=== PATIENT | female | born 1985 | race Asian ===

== ENCOUNTER 2017-11-09 01:00 | Inpatient (IN) | payer SELFPAY ==
[~2017-11-09] VITALS: Ht 174 cm; Wt 88.9 kg
[2017-11-09] MEDS ORDERED: METHYLERGONOVINE 0.2 MG/ML AMP IM PRN (01:50)
[2017-11-09] MEDS ORDERED: OXYTOCIN 10 UNITS/ML VIAL IM SCH (01:50)
[2017-11-09] MEDS ORDERED: CARBOPROST 250 MCG/ML AMP IM PRN (01:50)
[2017-11-09] MEDS ORDERED: PREN1SGL25 PO (01:54)
[2017-11-09 01:57] VITALS: BP 122/78
[2017-11-09 02:14] LABS: APPEARANCE,URINE SL CLOUDY (CLEAR); BILIRUBIN,URINE NEGATIVE (NEGATIVE); BLOOD, URINE 3+ (NEGATIVE); COLOR,URINE YELLOW (YELLOW); LEUKOCYTE ESTERASE ,URINE 2+ (NEGATIVE); NITRITE, URINE NEGATIVE (NEGATIVE); UGLUCOSE NEGATIVE (NEGATIVE)
[2017-11-09 02:22] LABS: ANION GAP 13.4 (8-16); CARBON DIOXIDE 24.3 mmol/L (21-32); CREATININE 0.7 mg/dL (0.6-1.3); POTASSIUM 3.7 mmol/L (3.5-5.1)
[2017-11-09 02:25] LABS: RBC,URINE 3-10 (FEW) /HPF (0-5)
[2017-11-09 02:27] LABS: ALBUMIN 2.5 g/dL (3.4-5.0); TOTAL BILIRUBIN 0.2 mg/dL (0.0-1.0)
[2017-11-09] MEDS ORDERED: OXYTOCIN 20 UNITS in LACTATED RINGERS 1,000 ML IV PRN (02:45)
[2017-11-09] MEDS ORDERED: OXYTOCIN 20 UNITS/LR PREMIX 1,000 ML IV ONE (02:53)
[2017-11-09 03:18] LABS: BASOPHILS # (AUTO) 0.1 K/uL (0.00-0.22); BASOPHILS % (AUTO) 0.7 % (0.0-2.0); EOSINOPHILS # (AUTO) 0.1 K/uL (0-0.4); EOSINOPHILS % (AUTO) 0.9 % (0.0-4.0); HEMATOCRIT 39.4 % (36-48); HEMOGLOBIN 12.9 g/dL (12.0-16.0); LYMPHOCYTES # (AUTO) 1.5 K/uL (2.5-16.5); LYMPHOCYTES % (AUTO) 20.3 % (20.5-51.1); MEAN CORPUSCULAR HEMOGLOBIN 28 pg (27-31); MEAN CORPUSCULAR HGB CONC 33 g/dL (33-37); MEAN CORPUSCULAR VOLUME 86.7 fL (80-94); MONOCYTES # (AUTO) 0.5 K/uL (0.8-1.0); MONOCYTES % (AUTO) 6.6 % (1.7-9.3); NEUTROPHILS # (AUTO) 5.2 K/uL (1.8-7.7); NEUTROPHILS % (AUTO) 71.5 % (42.2-75.2); PLATELET COUNT (AUTO) 156 K/uL (140-450); RED BLOOD CELL COUNT(AUTO) 4.54 MIL/uL (4.20-5.40); RED CELL DISTRIBUTION WIDTH 14.3 % (11.6-13.7); WHITE BLOOD COUNT (AUTO) 7.2 K/uL (4.8-10.8)
[2017-11-09] MEDS: LACTATED RINGERS 1,000 ML IV SCH ×3 (05:00→09:36)
[2017-11-09] MEDS ORDERED: BUPIVACAINE 0.125%/NS PREMIX 250 ML ONE (05:27)
--- NOTE | 2017-11-09 09:17 | NUR ---
PATIENT HAS BEEN SCREENED AND CATEGORIZED LOW NUTRITION RISK. PATIENT WILL BE SEEN WITHIN 7 DAYS OF ADMISSION. 11/15/[address]
[2017-11-09] MEDS ORDERED: OXYTOCIN 10 UNITS/ML VIAL ONE (11:15)
[2017-11-09] MEDS ORDERED: SODIUM PHOSPHATE 118 ML ENEM RC PRN (15:05)
[2017-11-09] MEDS ORDERED: HYDROcodone/APAP 5/325 MG 1 TAB TAB PO PRN (15:05)
[2017-11-09] MEDS ORDERED: MEASLES, MUMPS, AND RUBELLA 1 VIAL SQVAC PRN (15:05)
[2017-11-09] MEDS ORDERED: BENZOCAINE/MENTHOL 20%-0.5% 60 GM CAN TP PRN (15:05)
[2017-11-09] MEDS ORDERED: IBUPROFEN 800 MG TAB PO PRN (15:05)
[2017-11-09] MEDS ORDERED: TEMAZEPAM 15 MG CAP PO PRN (15:05)
[2017-11-09] MEDS ORDERED: oxyCODONE/APAP 5/325 MG 1 TAB TAB PO PRN (15:05)
[2017-11-09] MEDS ORDERED: oxyCODONE/APAP 5/325 MG 1 TAB TAB ONE (16:51)
[2017-11-09] MEDS ORDERED: DOCUSATE SOD/SENNA 50/8.6 MG 1 TAB PO SCH (21:00)
[2017-11-10 05:52] LABS: HEMATOCRIT 34.7 % (36-48); HEMOGLOBIN 11.5 g/dL (12.0-16.0)
[2017-11-10 14:03] LABS: RAPID PLASMA REAGIN NON-REACTIVE (Non Reactiv)
== END 2017-11-11 16:30 | disposition home or self-care (01) | DRG 775 ==
LOC: MLD 01:00 → MFCC 17:03
PROVIDERS: ADMIT Obstetrics & Gynecology; ATTEND Obstetrics & Gynecology
PROC: 10907ZC Drainage of Amniotic Fluid, Therapeutic from Products of Conception, Via Natural or Artificial Opening (ICD-10-PCS; principal; 2017-11-09)
PROC: 10E0XZZ Delivery of Products of Conception, External Approach (ICD-10-PCS; 2017-11-09)
PROC: 3E033VJ Introduction of Other Hormone into Peripheral Vein, Percutaneous Approach (ICD-10-PCS; 2017-11-09)
PROC: 3E0R3BZ Introduction of Anesthetic Agent into Spinal Canal, Percutaneous Approach (ICD-10-PCS; 2017-11-09)
PROC: 00HU33Z Insertion of Infusion Device into Spinal Canal, Percutaneous Approach (ICD-10-PCS; 2017-11-09)
PROC: 0UQGXZZ Repair Vagina, External Approach (ICD-10-PCS; 2017-11-09)
DX: O71.4 Obstetric high vaginal laceration alone (principal); Z37.0 Single live birth; Z3A.40 40 weeks gestation of pregnancy
CPT/HCPCS: 36415; 51702; 59409; 80053; 81001; 85018; 85025; 86592; 86886; 86900; 86901; 87086; 90715; J2590; J3490; J7120